=== PATIENT | female | born 2000 | race Caucasian/White ===

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

== ENCOUNTER 2018-07-27 12:16 | Emergency (ER) | payer OTHER ==
[~2018-07-27] VITALS: Ht 162.6 cm; Wt 87.1 kg
[~2018-07-27 12:16] MED LIST: PRON INH
[2018-07-27 12:37] VITALS: BP 161/99
--- NOTE | 2018-07-27 12:54 | NUR ---
PT BIB SELF FOR SINUS PAIN X3 DAYS. PT REPORTS CONSTANT PAIN AROUND NOSE, FOREHEAD, AND RT EYE AT 6/10 THAT IS WORSE WHEN BREATHING AND AT NIGHT. + NAUSEA. - FEVER, -DIARRHEA, -VOMIT. VSS. ER MD TO SEE PT. MEDHX:ASTHMA RX:DENIES
--- NOTE | 2018-07-27 13:57 | NUR ---
WALKED URINE TO LAB FOR UA.
[2018-07-27 14:13] LABS: APPEARANCE,URINE HAZY (CLEAR); BILIRUBIN,URINE NEGATIVE (NEGATIVE); BLOOD, URINE NEGATIVE (NEGATIVE); COLOR,URINE YELLOW (YELLOW); NITRITE, URINE NEGATIVE (NEGATIVE); PH,URINE 7.5 (5.0-9.0); UGLUCOSE NEGATIVE (NEGATIVE)
[2018-07-27 14:14] LABS: LEUKOCYTE ESTERASE ,URINE NEGATIVE (NEGATIVE)
[2018-07-27 14:55] VITALS: BP 128/75
--- NOTE | 2018-07-27 14:55 | NUR ---
Patient discharged with v/s stable. Written and verbal after care instructions given and explained. Patient alert, oriented and verbalized understanding of instructions. Ambulatory with steady gait. All questions addressed prior to discharge. ID band removed. Patient advised to follow up with PMD. Rx of SUDAFED 12 HOUR 120MG CAPLET given. Patient educated on indication of medication including possible reaction and side effects. Opportunity to ask questions provided and answered.
== END 2018-07-27 14:55 | disposition home or self-care (01) ==
LOC: MED 12:16
DX: O26.899 Other specified pregnancy related conditions, unspecified trimester (principal); J32.9 Chronic sinusitis, unspecified; R05 Cough; J45.909 Unspecified asthma, uncomplicated; Z79.899 Other long term (current) drug therapy; Z3A.00 Weeks of gestation of pregnancy not specified
CPT/HCPCS: 81003; 81025; 99283